=== PATIENT | female | born 1985 | race Caucasian/White ===

== ENCOUNTER 2021-01-11 10:30 | Outpatient (CLI) | payer BC, SELFPAY ==
--- NOTE | 2021-01-15 07:31 | WPDHOLTEREM ---
Holter/Event Monitor Holter/Event Monitor Date of procedure: 01/11/21 Holter/Event Procedure: 24 Hr Holter Monitor Indications: Palpitations Conclusion: 1. 24 hour holter monitor on 01/11/21. 2. Underlying rhythm is sinus rhythm. HR range 64-156 bpm; 82 bpm. 3. There are 39 premature supraventricular complexes. No supraventricular tachycardia. 4. There are 168 premature ventricular complexes and 1 ventricular couplet. No ventricular tachycardia. 5. No sinoatrial or atrioventricular blocks. No significant pauses greater than 2 seconds. 6. Patient reports symptoms of palpitations and flutter which demonstrate sinus rhythm, HR range 87-145 bpm.
== END 2021-01-11 10:31 | disposition home or self-care (01) ==
PROVIDERS: PCP Family Medicine; Visit Provider Physician Assistant
DX: R00.2 Palpitations (principal)
CPT/HCPCS: 93225; 93226

== ENCOUNTER → 2022-05-01 16:06 | Outpatient (CLI) | payer OTHER, SELFPAY ==
--- NOTE | ~2022-05-01 | XR_ITS ---
EXAM: XR foot RT min 3V DATE: 05/01/2022 17:08 HISTORY: M79.671 - Pain in right foot . Pain in the fifth digit and lateral right foot 3 weeks after stubbing toe. Numbness. COMPARISON: None available. FINDINGS: Normal mineralization. Very subtle transverse lucency seen in the distal aspect of the rig ht fifth proximal phalange, with possible periosteal change and no displacement. No lytic or blastic lesion. Joint spaces are maintained. No erosion or periosteal change. Soft tissues within normal limi ts. IMPRESSION: Possible subacute, transverse, nondisplaced fracture of the distal aspect of the right fi fth proximal phalange, correlate with pain/point tenderness. Reviewed, dictated and finalized at location [facility] [employer] IMPRESSION: Possible subacute, transverse, nondisplaced fracture of the distal aspect of the right fifth proximal phalange, correlate with pain/point tenderne ss.
== END ==
PROVIDERS: PCP Family Medicine; Visit Provider Physician Assistant
DX: M79.671 Pain in right foot (principal)
CPT/HCPCS: 73630